=== PATIENT | male | born 2000 | race Caucasian/White ===

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

== ENCOUNTER → 2020-09-08 | Outpatient (CLI) | payer OTHER ==
--- NOTE | 2020-09-08 12:47 | XR ---
EXAMINATION TYPE: XR sternum DATE OF EXAM: 09/08/2020 COMPARISON: NONE HISTORY: Prior fracture sternum. TECHNIQUE: 2 views of the thoracolumbar performed. FINDINGS: Lateral view shows no acute displaced fracture. Sternum not well-seen on frontal view. Visu alized ribs grossly intact. IMPRESSION: As above.
== END | disposition home or self-care (01) ==
LOC: RADXRMAIN 12:16
PROVIDERS: ATTEND Family Medicine
DX: S22.20XA Unspecified fracture of sternum, initial encounter for closed fracture (principal)
CPT/HCPCS: 71120

== ENCOUNTER → 2020-12-16 | Outpatient (CLI) | payer OTHER ==
--- NOTE | 2020-12-16 12:59 | ECHOF ---
Referral Reason:R94.31 Abnormal EKG MEASUREMENTS -------- HEIGHT: 182.9 cm WEIGHT: 88.5 kg BP: RVIDd: 2.7 cm (< 3.3) IVSd: 0.9 cm (0.6 - 1.1) LVIDd: 4.8 cm (3.9 - 5.3) LVPWd: 1.0 cm (0.6 - 1.1) IVSs: 1.2 cm LVIDs: 2.8 cm LVPWs: 1.6 cm LA Diam: 3.3 cm (2.7 - 3.8) Ao Diam: 2.8 cm (2.0 - 3.7) AV Cusp: 1.8 cm (1.5 - 2.6) LA Diam: 3.1 cm (2.7 - 3.8) MV EXCURSION: 24.534 mm (> 18.000) MV EF SLOPE: 122 mm/s (70 - 150) EPSS: 0.2 cm MV E Esequiel: 1.01 m/s MV DecT: 197 ms MV A Esequiel: 0.36 m/s MV E/A Ratio: 2.84 RAP: 5.00 mmHg RVSP: 18.15 mmHg FINDINGS -------- Sinus rhythm. This was a technically good study. LV size, wall thickness and systolic function are normal, with an EF greater than 55%. The left inez tricular size is normal. The diastolic filling pattern is normal for the age of the patient 6.27. The right ventricle is normal in size. The left atrial size is normal. The right atrial size is normal. The aortic valve is trileaflet, and appears structurally normal. No aortic stenosis or regurgitation. The mitral valve is normal. There is trace to mild mitral regurgitation. The tricuspid valve appears structurally normal. Mild tricuspid regurgitation present. Right vent ricular systolic pressure is normal at < 35 mmHg. Trace/mild (physiologic) pulmonic regurgitation. The aortic root size is normal. There is no pericardial effusion. CONCLUSIONS -------- 1. LV size, wall thickness and systolic function are normal, with an EF greater than 55%. 2. The left atrial size is normal. 3. The aortic valve is trileaflet, and appears structurally normal. No aortic stenosis or regurgitati on. 4. There is trace to mild mitral regurgitation. 5. Mild tricuspid regurgitation present. 6. Trace/mild (physiologic) pulmonic regurgitation. 7. There is no pericardial effusion. COSMETIC CONSULTANT: Nivia Burk RDCS
== END | disposition home or self-care (01) ==
LOC: RADECHMAIN 08:15
PROVIDERS: ATTEND Family Medicine
DX: I07.1 Rheumatic tricuspid insufficiency (principal)
CPT/HCPCS: 93225; 93226; 93306

== ENCOUNTER 2023-06-14 23:39 | Emergency (ER) | payer BC ==
[2023-06-14 23:53] VITALS: TEMP 97.7
[2023-06-15] MEDS ORDERED: SODIUM CHLORIDE 0.9% 1,000 ML IV STA (00:41)
[2023-06-15] MEDS ORDERED: KETOROLAC 15 MG/ML 1 ML VIAL IVP STA (00:41)
[2023-06-15] MEDS ORDERED: METOCLOPRAMIDE 5 MG/ML 2 ML VIAL IVP STA (00:41)
[2023-06-15] MEDS ORDERED: diphenhydrAMINE 50 MG/ML 1 ML VIAL IVP STA (00:41)
--- NOTE | 2023-06-15 02:52 | ED ---
Headache HPI - General Chief Complaint: Headache Stated Complaint: Headache syncope Time Seen by Provider: 06/15/23 00:32 Mode of arrival: ambulatory Limitations: no limitations - History of Present Illness Initial Comments: 22-year-old male presenting with chief complaint of migraine. Patient states that he does have history of migraines. Patient had blood work drawn today and had a syncopal episode, he states that "I do not do well with needles". He states that since then he has had this migraine. It feels consistent with previous migraines. He admits to nausea vomiting and light sensitivity. He denies numbness tingling or weakness. - Related Data Home Medications Medication Instructions Recorded Confirmed Anastrozole [Arimidex] 0.5 mg PO TH 12/22/16 12/22/16 Minocycline HCl [Minocin] 100 mg PO HS 12/22/16 12/22/16 Allergies Allergy/AdvReac Type Severity Reaction Status Date / Time No Known Allergies Allergy Verified 12/22/16 12:54 Review of Systems ROS Statement: Those systems with pertinent positive or pertinent negative responses have been documented in the HPI. ROS Other: All systems not noted in ROS Statement are negative. Past Medical History Past Medical History: No Reported History, Hypertension Additional Past Medical History / Comment(s): concussions History of Any Multi-Drug Resistant Organisms: None Reported Past Surgical History: No Surgical Hx Reported Past Psychological History: No Psychological Hx Reported Past Alcohol Use History: None Reported Past Drug Use History: None Reported General Exam Limitations: no limitations General appearance: alert, in no apparent distress Head exam: Present: atraumatic, normocephalic Eye exam: Present: normal appearance, EOMI Neck exam: Present: normal inspection. Absent: tenderness Respiratory exam: Absent: respiratory distress Cardiovascular Exam: Present: regular rate Neurological exam: Present: alert, oriented X3 Expanded Patient oriented to: Present: person, place, time Speech: Present: fluid speech Cranial nerves: EOM's Intact: Normal Motor strength exam: RUE: 5, LUE: 5, RLE: 5, LLE: 5 Eye Response: (4) open spontaneously Motor Response: (6) obeys commands Verbal Response: (5) oriented [place] Total: 15 Psychiatric exam: Present: normal affect, normal mood Skin exam: Present: warm, dry Course Vital Signs 06/14/23 06/15/23 23:46 03:03 Temperature 97.7 F Pulse Rate 80 100 Respiratory 18 20 Rate Blood Pressure 119/73 120/68 O2 Sat by Pulse 100 99 Oximetry Medical Decision Making - Medical Decision Making Was pt. sent in by a medical professional or institution (, [facility], OIL FIELD EQUIPMENT MECHANIC, urgent care, hospital, or care home...) When possible be specific @ -No Did you speak to anyone other than the patient for history (EMS, parent, family, police, friend...)? What history was obtained from this source @ -No Did you review nursing and triage notes (agree or disagree)? Why? @ -I reviewed and agree with nursing and triage notes Were old charts reviewed (outside hosp., previous admission, EMS record, old EKG, old radiological studies, urgent care reports/EKG's, care home records)? Report findings @ -No old charts were reviewed Differential Diagnosis (chest pain, altered mental status, abdominal pain women, abdominal pain men, vaginal bleeding, weakness, fever, dyspnea, syncope, headache, dizziness, GI bleed, back pain, seizure, CVA, palpatations, mental health, musculoskeletal)? @ -MDM Differential Headache: Migraine, tension, cluster, carbon monoxide, central venous thrombosis, pension karma temporal arteritis, acute closure glaucoma, intercranial hemorrhage, mastoiditis, sinusitis, head injury this is not meant to be an all-inclusive list. EKG interpreted by me (3pts min.). @ -As above X-rays interpreted by me (1pt min.). @ -None done CT interpreted by me (1pt min.). @ -None done U/S interpreted by me (1pt. min.). @ -None done What testing was considered but not performed or refused? (CT, X-rays, U/S, labs)? Why? @ -None What meds were considered but not given or refused? Why? @ -None Did you discuss the management of the patient with other professionals (professionals i.e. [facility] Franco, OIL FIELD EQUIPMENT MECHANIC, lab, RT, psych nurse, social welfare administrator, fur storage clerk, teacher, chief privacy officer, piano case maker)? Give summary @ -No Was smoking cessation discussed for >3mins.? @ -No Was critical care preformed (if so, how long)? @ -No Were there social determinants of health that impacted care today? How? (Homelessness, low income, unemployed, alcoholism, drug addiction, transportation, low edu. Level, literacy, decrease access to med. care, senior care, rehab)? @ -No Was there de-escalation of care discussed even if they declined (Discuss DNR or withdrawal of care, Hospice)? DNR status @ -No What co-morbidities impacted this encounter? (DM, HTN, Smoking, COPD, CAD, Cancer, CVA, ARF, Chemo, Hep., AIDS, mental health diagnosis, sleep apnea, morbid obesity)? @ -None Was patient admitted / discharged? Hospital course, mention meds given and route, prescriptions, significant lab abnormalities, going to OR and other pertinent info. @ -22-year-old male with history of migraines presenting with chief complaint of migraine. This feels consistent with his previous migraines. History and physical exam are conducted. Patient is given 1 L fluid bolus, Toradol, Reglan, and Benadryl. On reassessment he states that he feels much better and is ready for discharge home. Follow-up with PCP. Report back to ER with any new or worsening symptoms. Discussed return parameters and answered all questions. Patient conveyed verbal understanding and agreed to the plan. I discussed this case in detail with my attending Dr. Chaves Undiagnosed new problem with uncertain prognosis? @ -No Drug Therapy requiring intensive monitoring for toxicity (Heparin, Nitro, Insulin, Cardizem)? @ -No Were any procedures done? @ -No Diagnosis/symptom? @ -Migraine Acute, or Chronic, or Acute on Chronic? @ -Acute Uncomplicated (without systemic symptoms) or Complicated (systemic symptoms)? @ -Uncomplicated Side effects of treatment? @ -No Exacerbation, Progression, or Severe Exacerbation? @ -No Poses a threat to life or bodily function? How? (Chest pain, [place], [place], pneumonia, PE, COPD, DKA, ARF, appy, cholecystitis, CVA, Diverticulitis, Homicidal, Suicidal, threat to staff... and all critical care pts) @ -No Disposition Clinical Impression: Migraine headache Disposition: HOME SELF-CARE Condition: Good Instructions (If sedation given, give patient instructions): Migraine Headache (ED) Additional Instructions: Follow-up with PCP. Report back to ER with any new or worsening symptoms. Is patient prescribed a controlled substance at d/c from ED?: No Referrals: Bon Tellez MD [Primary Care Provider] - 1-2 days Time of Disposition: 02:51
[2023-06-15 03:20] VITALS: BP 120/68; PULSE 100; RESP 20
== END 2023-06-15 03:03 | disposition home or self-care (01) ==
LOC: EC 23:39
DX: G43.909 Migraine, unspecified, not intractable, without status migrainosus (principal); I10 Essential (primary) hypertension
CPT/HCPCS: 99284; 96374; 96375 ×2; 96361; J1200; J2765; J1885

== ENCOUNTER → 2023-06-14 | Outpatient (CLI) | payer BC | END | disposition home or self-care (01) | LOC: LABWHC1 16:21 | PROVIDERS: ATTEND Internal Medicine Cardiovascular Disease | DX: I10 Essential (primary) hypertension (principal) | CPT/HCPCS: 36415; 82088; 82533; 83835; 84244; 84443 ==

== ENCOUNTER → 2023-07-08 | Outpatient (CLI) | payer BC ==
--- NOTE | 2023-07-08 12:13 | US ---
EXAMINATION TYPE: US renal artery duplex complet DATE OF EXAM: 07/08/2023 COMPARISON: NONE CLINICAL INDICATION: Male, 22 years old with history of I10 HTN; Hypertension, patient is taking medi cation for HTN. MEASUREMENTS: RENAL SIZE: Right Kidney: 13.4 x 5.3 x 4.4 cm Left Kidney: 12.7 x 5.7 x 5.2 cm Right Kidney: No hydronephrosis or lesions seen Left Kidney: No hydronephrosis or lesions seen Abd Aorta: Appears wnl RESISTANCE INDEX Right: 0.76 Left: 0.77 RA/AO RATIO (< 3.5 ) Right: 1.0 Left: 1.2 RENAL ARTERY VELOCITY ( < 180 cm/s) Right: 153.4 cm/s Left: 196.7 cm/s Elevated velocity In the transverse plane there is some mild lobular type density along the margin of the right kidney. This area is not clearly identified in the sagittal plane. Additional evaluation with MRI with cont rast of the kidneys is recommended. CT could be performed. Group Work Program Director Notes: Exam is limited due to gas. Elevated left renal artery velocity at prox. Bilatera l kidneys appear enlarged. Right kidney is larger than left kidney. IMPRESSION: 1. Slight elevation of the left renal artery velocity. Ratios are not elevated. Focal stenosis is no t identified. 2. Masslike area identified in the transverse plane at the upper pole right kidney not identified on sagittal plane images. Consider additional workup with MRI with contrast.
== END | disposition home or self-care (01) ==
LOC: RADUSWWP 08:36
PROVIDERS: ATTEND Family Medicine
DX: N28.89 Other specified disorders of kidney and ureter (principal); I10 Essential (primary) hypertension
CPT/HCPCS: 93975

== ENCOUNTER → 2023-07-19 | Outpatient (CLI) | payer BC ==
--- NOTE | 2023-07-22 18:55 | MR ---
EXAMINATION TYPE: MR kidney wo/w con DATE OF EXAM: 07/19/2023 6:13 PM CLINICAL INDICATION:Male, 22 years old with history of N28.89 DISORDER OF KIDNEYS AND URETERS; PHH, A bnormal US, elevated blood pressure/bloodwork. COMPARISON: Ultrasound imaging 07/08/2023. TECHNIQUE: Multiplanar multi-sequence imaging was performed without contrast. Post contrast imaging was performed. Post IV contrast subtraction images were also submitted for review. IV Contrast: 10 cc Gadobutrol FINDINGS: LOWER CHEST: No gross irregularity. ABDOMEN Liver: No evidence for hepatic steatosis or cirrhosis. Signal dropout on chemical shift in phase imag ing. Left hepatic lobe high T2 signal observation measuring 9 mm. This lesion demonstrates central do t of enhancement with gradual fill-in on delayed imaging. Gallbladder and Bile ducts: No evidence for ductal dilation, or biliary stricture or evidence of chol edocholithiasis. The gallbladder is within normal limits. Pancreas: No ductal dilation. No evidence for solid mass. Spleen: Normal for size. Mild signal dropout parenchyma consistent phase imaging. Adrenal glands: Unremarkable. Kidneys: Right kidney demonstrate no evidence for mass or solid lesion. Left kidney demonstrates simp le appearing high T2 signal cysts. Measuring up to 17 mm. No evidence for obstructive uropathy. No villafuerte spicious renal masses. Stomach and Bowel: No evidence for bowel wall thickening or evidence for obstruction. Retroperitoneum/Peritoneum: No evidence of pneumoperitoneum or free fluid. Vasculature: No aortic aneurysm. Musculoskeletal: The osseous structures appear intact. Lymph Nodes: No gross evidence for lymphadenopathy. Abdominal wall: Fat-containing umbilical hernia. IMPRESSION: 1. No evidence for right renal mass. Simple appearing left renal cyst. Finding on prior ultrasound f elt to be due to technique. 2. Left hepatic lobe lesion with benign enhancement characteristics possibly representing atypical h emangioma versus other. 3. Minimal iron deposition within the liver and spleen.
== END | disposition home or self-care (01) ==
LOC: RADMRIMAIN 17:20
PROVIDERS: ATTEND Family Medicine
DX: N28.1 Cyst of kidney, acquired (principal); N28.89 Other specified disorders of kidney and ureter
CPT/HCPCS: 74183; A9585